=== PATIENT | female | born 1930 | race Caucasian/White ===

== ENCOUNTER 2016-04-22 10:03 | Emergency (ER) | payer OTHER, MEDICARE ==
[2016-04-22 10:13] VITALS: RESP 16
--- NOTE | 2016-04-22 10:50 | CPEKG ---
Heart Rate: 69 RR Interval: 870 P-R Interval: 160 QRSD Interval: 92 QT Interval: 400 QTC Interval: 429 P [place]: 37 QRS [place]: -7 T Wave [place]: 61 EKG Severity - NORMAL ECG - EKG Impression: SINUS RHYTHM Electronically Signed By: Jessica Yu 22-Apr-2016 14:24:50
--- NOTE | 2016-04-22 10:52 | EDPHY ---
H & P Time Seen by Provider: 04/22/16 10:32 HPI/ROS: CHIEF COMPLAINT: Left arm pain, numbness HISTORY OF PRESENT ILLNESS: Patient is an 78-year-old female with a history of hypertension who presents to the emergency department after an episode of left arm pain and numbness starting this morning at 4:00 a.m. She awoke from sleep with discomfort and numbness. Her symptoms are now improved. She has had a previous episode of this 1 week ago. She has no other focal complaints at this time. She denies any headache or neck pain. No recent trauma or fall. No visual change. No nausea or vomiting. REVIEW OF SYSTEMS: My complete review of systems is negative except as mentioned in the HPI. Past Medical/Surgical History: Includes hypertension, gout, breast mass Past surgical history: Benign breast biopsy, knee surgery Social history: The patient is not smoke use alcohol. Smoking Status: Never smoked Physical Exam: Vitals noted. The patient was hypertensive in triage 145/86. When I was in the room the patient was 190/117. GENERAL: Well-appearing, in no acute distress, alert. HEENT: Eyes normal to inspection, normal pharynx, no signs of dehydration. NECK: No thyromegaly, no lymphadenopathy, supple. RESPIRATORY: Clear to auscultation bilaterally, no rales, rhonchi or wheezing. CVS: Regular rate and rhythm, no rubs, murmurs, or gallops. ABDOMEN: Soft, nontender, nondistended, no organomegaly. BACK: Normal to inspection, no CVA tenderness. SKIN: Normal color, no rash, warm, dry. No pallor. EXTREMITIES: No pedal edema, no calf tenderness, no Homans sign or cords, no joint swelling. NEURO/PSYCH: Higher functions: Alert and Oriented x3. Normal speech and cognition. Normal mood and affect. Cranial nerves: Normal as tested. Cerebellar: Normal as tested. Good finger to nose, good [id number], normal gait. Peripheral exam: Normal motor exam. The patient reports slightly decreased sensation in the left hand over the ulnar distribution when compared with the right. Otherwise the sensory exam is normal in all extremities Constitutional: Initial Vital Signs Temperature (C) 36.4 C 04/22/16 10:11 Heart Rate 81 04/22/16 10:11 Respiratory Rate 16 04/22/16 10:11 Blood Pressure 145/86 H 03/02/17 10:11 O2 Sat (%) 98 04/22/16 10:11 O2 Delivery Mode Room Air Allergies/Adverse Reactions: influenza virus vaccine, specific [Influenza Virus Vacc,Specific] Allergy ( Severe, Verified 09/16/15 12:52) Anaphylaxis Tetanus Vaccines and Toxoid [Tetanus Vaccines & Toxoid] Allergy (Severe, Verified 09/16/15 12:52) Anaphylaxis latex Allergy (Intermediate, Verified 09/16/15 12:52) Swelling/neck,face,throat morphine Allergy (Intermediate, Verified 09/16/15 12:52) Vomiting CATS, DOGS, PERFUMES Allergy (Mild, Uncoded 08/14/13 14:12) RUNNY NOSE, SNEEZE Home Medications: Medication Instructions Recorded Cholecalciferol Vit D3 [Vitamin D3 1,000 units PO DAILY 08/07/13 (OTC)] Herbals/Supplements -Info Only 1 ea PO DAILY 08/07/13 Vitamin B Complex [B Complex] 1 each PO DAILY 08/07/13 Htn Med 09/16/15 INDOMETHACIN 09/16/15 Lisinopril 04/22/16 Medical Decision Making - Diagnostics EKG Interpretation: EKG shows normal sinus rhythm, normal rate, normal axis, normal intervals. There are no ST or T-wave abnormalities. EKG is normal as interpreted by me. ED Course/Re-evaluation: In the emergency department I discussed possible etiologies with the patient. I answered all her questions. Patient had an IV placed. Laboratory studies, EKG and MRI of the brain were ordered. The patient had no focal deficits at this time with no headache. I felt MRI was appropriate imaging. Patient's laboratory studies were unremarkable. CBC, chemistry and troponin were negative. D-dimer negative. I rechecked the patient on numerous occasions while here. She was stable during her stay. MRI brain: Please refer the dictated report by Dr. Eyal Beach. No acute disease noted. 1245: I discussed the result with the patient. I answered all her questions. On re-examination she had no focal neurologic deficit. Patient was given warnings prior to leaving. She will follow up with Neurology. She was given contact information. She will return with worsening symptoms. Differential Diagnosis: My differential includes but is not limited to ischemic CVA, hemorrhagic CVA, dissection, aneurysm, subarachnoid hemorrhage, subdural hematoma, disc disease, spinal cord disease, neuropraxis, DVT, arterial occlusion - Data Points Laboratory Results: Laboratory Results 04/22/16 11:30 04/22/16 11:30 04/22/16 04/22/16 04/22/16 11:30 11:30 11:30 WBC 8.32 10^3/uL 10^3/uL (3.80-9.50) RBC 4.37 10^6/uL 10^6/uL (4.18-5.33) Hgb 14.2 g/dL g/dL (12.6-16.3) Hct 43.0 % % (38.0-47.0) MCV 98.4 fL fL (81.5-99.8) MCH 32.5 pg pg (27.9-34.1) MCHC 33.0 g/dL g/dL (32.4-36.7) RDW 14.0 % % (11.5-15.2) Plt Count 125 10^3/uL L 10^3/uL (150-400) MPV 10.8 fL fL (8.7-11.7) Neut % (Auto) 80.1 % H % (39.3-74.2) Lymph % (Auto) 11.7 % L % (15.0-45.0) [place]y % (Auto) 6.7 % % (4.5-13.0) Eos % (Auto) 0.8 % % (0.6-7.6) Baso % (Auto) 0.6 % % (0.3-1.7) Nucleat RBC Rel Count 0.0 % % (0.0-0.2) Absolute Neuts (auto) 6.66 10^3/uL H 10^3/uL (1.70-6.50) Absolute Lymphs (auto) 0.97 10^3/uL L 10^3/uL (1.00-3.00) Absolute Monos (auto) 0.56 10^3/uL 10^3/uL (0.30-0.80) Absolute Eos (auto) 0.07 10^3/uL 10^3/uL (0.03-0.40) Absolute Basos (auto) 0.05 10^3/uL 10^3/uL (0.02-0.10) Absolute Nucleated RBC 0.00 10^3/uL 10^3/uL (0-0.01) Immature Gran % 0.1 % % (0.0-1.1) Immature Gran # 0.01 10^3/uL 10^3/uL (0.00-0.10) PT 13.1 SEC SEC (12.0-15.0) INR 1.00 (0.83-1.16) APTT 20.0 SEC L SEC (23.0-38.0) D-Dimer 0.36 ug/mLFEU ug/mLFEU (0.00-0.50) Sodium 141 mEq/L mEq/L (134-144) Potassium 4.9 mEq/L mEq/L (3.5-5.2) Chloride 106 mEq/L mEq/L (97-110) Carbon Dioxide 24 mEq/l mEq/l (22-31) Anion Gap 11 mEq/L mEq/L (8-16) BUN 17 mg/dL mg/dL (7-23) Creatinine 0.8 mg/dL mg/dL (0.6-1.0) Estimated GFR > 60 Glucose 99 mg/dL mg/dL (70-100) Calcium 9.5 mg/dL mg/dL (8.5-10.4) Troponin I < 0.012 ng/mL ng/mL (0-0.034) Departure - Departure Disposition: Home, Routine, Self-Care Clinical Impression: Left hand paresthesia Hypertension Qualifiers: Hypertension type: unspecified secondary hypertension Qualified Code(s): I15.9 - Secondary hypertension, unspecified Condition: Good Instructions: Paresthesia (ED) Additional Instructions: Your MRI was unremarkable. You need close follow up with Neurology for your hand numbness. Return with worsening symptoms. Referrals: Kasi Ziegler DO [Primary Care Provider] - As per Instructions Leonardo Hitchcock DO [Medical Doctor] - 5-7 days, call for appt.
[2016-04-22 11:45] LABS: % IMMATURE GRANULYOCYTES 0.1 % (0.0-1.1); ABSOLUTE IMMATURE GRANULOCYTES 0.01 10^3/uL (0.00-0.10); ADD DIFF? NO; ADD MORPH? NO; ADD SCAN? NO; ATYPICAL LYMPHOCYTE FLAG 0 (0-99); FRAGMENT RBC FLAG 0 (0-99); HEMOGLOBIN 14.2 g/dL (12.6-16.3); LEFT SHIFT FLG 0 (0-99); LIPEMIA HEMOLYSIS FLAG 80 (0-99); MEAN CELL HEMOGLOBIN 32.5 pg (27.9-34.1); MEAN CELL VOLUME 98.4 fL (81.5-99.8); MEAN PLATELET VOLUME 10.8 fL (8.7-11.7); PLATELET CLUMPS FLAG 50 (0-99); PLATELET COUNT 125 10^3/uL (150-400); RED BLOOD CELL COUNT 4.37 10^6/uL (4.18-5.33)
[2016-04-22] MEDS ORDERED: GADOBUTROL 10 ML VIAL IVP ONE (11:53)
[2016-04-22 11:55] LABS: PROTIME(PATIENT) 13.1 SEC (12.0-15.0)
[2016-04-22 12:12] LABS: ANION GAP 11 mEq/L (8-16); CALCIUM 9.5 mg/dL (8.5-10.4); CARBON DIOXIDE 24 mEq/l (22-31); CHLORIDE 106 mEq/L (97-110); CREATININE 0.8 mg/dL (0.6-1.0); GLOMERULAR FILTRATION RATE > 60; GLUCOSE 99 mg/dL (70-100); POTASSIUM 4.9 mEq/L (3.5-5.2); SODIUM 141 mEq/L (134-144)
[2016-04-22 12:24] LABS: TROPONIN I < 0.012 ng/mL (0-0.034)
[2016-04-22 13:11] VITALS: BP 181/93; PULSE 79; TEMP 97.3; O2SAT 95
== END 2016-04-22 13:11 | disposition home or self-care (01) ==
DX: R20.2 Paresthesia of skin (principal); I15.9 Secondary hypertension, unspecified; Z91.040 Latex allergy status
CPT/HCPCS: 70553; 93005; 99285; A9585

== ENCOUNTER 2016-12-11 12:41 | Emergency (ER) | payer OTHER, MEDICARE ==
[2016-12-11 12:51] VITALS: RESP 16
--- NOTE | 2016-12-11 15:39 | EDPHY ---
General Narrative: CHIEF COMPLAINT: Painful swallowing HISTORY OF PRESENT ILLNESS: Patient complains of having difficulty swallowing, chest pain and feeling a foreign body sensation in her esophagus. That started last night while eating steak. It persisted for several hours. She had a couple episodes of vomiting of clear fluid. The symptoms improved overnight and then resolved this morning after taking a friend's Gaviscon [id number] medication. Since then she has had no complaints of any kind. She has felt 100% resolved. She has had water to drink while waiting for her evaluation and has had no problem with this. She has had no drooling. No chest pain. No shortness of breath. No fever chills. No previous history of esophageal stricture, achalasia or Zenker. She has had no previous history of aspiration. No previous stroke. No complaints of any kind at this time. REVIEW OF SYSTEMS: Ten systems reviewed and are negative unless otherwise noted in the HPI PCP: Dr. Ziegler SPECIALISTS: None PAST MEDICAL HISTORY: Hypertension PAST SURGICAL HISTORY: None SOCIAL HISTORY: Nonsmoker. No alcohol or illicit substance use. She is retired FAMILY HISTORY: Noncontributory EXAMINATION General Appearance: Alert, no distress Head: normocephalic, atraumatic Eyes: Pupils equal and round, no conjunctival pallor or injection ENT, Mouth: Mucous membranes moist. Uvula midline. Airway is widely patent. There is no posterior erythema or edema. No foreign body. No drooling. No stridor. Neck: Normal inspection, supple, non-tender. Midline trachea. Non painful swallowing Respiratory: Lungs are clear to auscultation. No wheezing, rhonchi or crackles. Cardiovascular: Regular rate and rhythm. No murmur Gastrointestinal: Abdomen is soft and nontender Neurological: A&O, nonfocal, normal gait Skin: Warm and dry, no rash no petechiae or purpura Extremities: Nontender, no pedal edema Psychiatric: Mood and affect normal DIFFERENTIAL DIAGNOSES: Including but not limited to esophageal stricture, esophageal foreign body, dysphagia, Zenker's diverticulum MDM: 2:30 p.m. Esophageal foreign body last night that has resolved prior to presentation. At time of my examination, she is feeling 100 present resolved. She would like to drink some water. I will allow her to try water and soft foods and re-evaluate. 3:15 p.m. Patient is tolerating a clear liquid in soft food without difficulty. On 1st examination I did not know she had vomiting last night, thus I have ordered chest x-ray at this time. Her lungs are clear in all larson her vitals are within normal limits. 3:45 p.m. Chest x-ray is unremarkable for any acute findings. There are senescent changes. I re-evaluated the patient. She continues to tolerate intake by mouth without any difficulty. We discussed admission to the hospital for esophagram and GI consult. She declined this. She would like to go home. She says that she will continue with clear liquids until Tuesday. I would like her to contact her primary care physician on Tuesday to discuss GI referral. I would like her to return to the emergency department for any difficulty swallowing, any chest pain of any kind. She is comfortable this plan. She is discharged in stable condition. - Diagnostics Imaging Results: Imaging Impressions Abdomen X-Ray 12/11/16 14:36 Impression: No bowel obstruction or pneumoperitoneum. Chest X-Ray 12/11/16 15:11 Impression: 1. Mild bronchitis/airways disease. 2. No definite focal pneumonia. - History Smoking Status: Never smoked - Objective Vital Signs: Initial Vital Signs Temperature (C) 98.1 F 12/11/16 12:49 Heart Rate 88 12/11/16 12:49 Respiratory Rate 16 12/11/16 12:49 Blood Pressure 195/82 H 12/11/16 12:49 O2 Sat (%) 98 12/11/16 12:49 Allergies/Adverse Reactions: influenza virus vaccine, specific [Influenza Virus Vacc,Specific] Allergy ( Severe, Verified 12/11/16 12:53) Anaphylaxis Tetanus Vaccines and Toxoid [Tetanus Vaccines & Toxoid] Allergy (Severe, Verified 12/11/16 12:53) Anaphylaxis latex Allergy (Intermediate, Verified 12/11/16 12:53) Swelling/neck,face,throat morphine Allergy (Intermediate, Verified 12/11/16 12:53) Vomiting CATS, DOGS, PERFUMES Allergy (Mild, Uncoded 08/14/13 14:12) RUNNY NOSE, SNEEZE Home Medications: Medication Instructions Recorded Lisinopril 04/22/16 Departure - Departure Disposition: Home, Routine, Self-Care Clinical Impression: Esophageal foreign body Qualifiers: Encounter type: initial encounter Qualified Code(s): T18.108A - Unspecified foreign body in esophagus causing other injury, initial encounter Condition: Good Instructions: Soft Diet (ED), Esophageal Foreign Body (ED), Esophageal Stricture (ED) Additional Instructions: 1. Soft or liquid diet only until seen by primary care physician 2. Contact primary care physician on Tuesday for GI referral 3. ED precautions for any return of symptoms or any chest pain of any kind Referrals: Kasi Ziegler DO [Primary Care Provider] - As per Instructions Joanie Christie MD [Medical Doctor] - As per Instructions
[2016-12-11 16:03] VITALS: BP 190/96; PULSE 81; TEMP 97.9; O2SAT 95
== END 2016-12-11 16:01 | disposition home or self-care (01) ==
DX: T18.108A Unspecified foreign body in esophagus causing other injury, initial encounter (principal); I10 Essential (primary) hypertension; Z91.040 Latex allergy status; X58.XXXA Exposure to other specified factors, initial encounter; Y99.8 Other external cause status; Y93.89 Activity, other specified

== ENCOUNTER → 2017-01-17 | Outpatient (CLI) | payer OTHER, MEDICARE | LOC: BMCIMAGING 10:37 | PROVIDERS: ATTEND Family Medicine | DX: Z13.820 Encounter for screening for osteoporosis (principal); M81.0 Age-related osteoporosis without current pathological fracture ==